=== PATIENT | female | born 1995 | race Caucasian/White ===

== ENCOUNTER 2016-12-14 12:55 | Emergency (ER) | payer OTHER ==
[~2016-12-14] VITALS: Ht 165.1 cm; Wt 68.2 kg
[2016-12-14 12:57] VITALS: BP 133/83; PULSE 81; RESP 16; O2SAT 98
--- NOTE | 2016-12-14 13:50 | ED.REPORT ---
HPI-General Illness Date of Service Dec 14, 2016 ED Provider: Jorge Luis Hatfield PA-C Family is otherwise healthy 21-year-old female presented with a chief complaint of possible allergy attack. Patient complains of eye pain with clear discharge , clear nasal discharge, postnasal drip, cough, sneezing. Denies ear symptoms, fever, abdominal pain, vomiting, contact lens use, chemical exposure, sick contacts. Nursing Notes Stated Complaint: POSSIBLE ALLERGY ATTACK Chief Complaint: FLU/Cold Symptoms Nursing Notes Reviewed: Yes Allergies: Coded Allergies: No Known Allergies (Unverified Allergy, Unknown, 12/14/16) Scheduled Fluticasone Propionate (Allergy Relief) 50 Mcg/Actuation [place].susp 2 SPRAY NOSTRIL BID Loratadine (Loratadine) 10 Mg Capsule 10 MG PO DAILY General Time Seen by MD: 13:32 Chief Complaint Other (allergy attack) Review of Systems Negative unless stated otherwise in history of present illness Physical Exam General: Well appearing, well developed, well nourished, no acute distress. Head: Atraumatic, normocephalic. No mastoid tenderness. Eyes: No scleral icterus or injection. Slight clear discharge. PERRL. EOMI. Vision grossly intact. Negative redness or swelling of the lids. Ears: Pinna and tragus nontender with manipulation. Right external auditory canal obstructed with cerumen. Left external auditory canal patent, atraumatic and without discharge. Tympanic membrane gomez, shiny and translucent without fluid, bulging, retraction or perforation. Hearing grossly intact. Nose: Symmetrical, nares patent without discharge. No frontal or maxillary sinus tenderness. Mouth/pharynx: normal dentition, mucus membranes moist. Tonsils 2+ and symmetrical, uvula midline. Pharynx injected, no cobblestoning or discharge. Voice clear. Neck: No tenderness or lymphadenopathy. Trachea midline. Respiratory: Mild clinically evident cough. No respiratory distress, no increased work of breathing. Speaks in complete sentences. Skin: Warm and dry. Neurological: Grossly nonfocal. Psychological: alert and oriented. Speech appropriate, linear and logical. Behavior appropriate. Vital Signs Vital Signs Date Time Temp Pulse Resp B/P Pulse Ox O2 Delivery O2 Flow Rate FiO2 12/14/16 14:11 78 16 109/67 98 Room Air 12/14/16 12:57 37.2 81 16 133/83 98 Room Air Normal Re-Eval/Medical Decision Med Decision/Clinical Course 21-year-old female with a history of seasonal allergies presents with chief complaint of a possible allergy attack. Complains of eye irritation, watery eyes, , runny nose, sore throat, cough, sneeze. Denies contact lens use, sick contacts, caustic exposures. Physical exam reveals slight clear discharge bilaterally, noninjected conjunctiva, pupils equal round and reactive to light, EOMI, negative redness and swelling of the eyelids. Clinically evident rhinorrhea, mild cough. Pharynx mildly injected. Vital signs are normal. I believe this is most likely a seasonal allergy, and less concerned about Infectious keratitis, bacterial or viral conjunctivitis, orbital or periorbital cellulitis, glaucoma, pneumonia. Advised loratidine, Flonase, [id number] antihistamine eyedrops. Patient has primary care follow-up arranged for Monday. Advised regarding primary care follow-up, provided emergency return precautions. Patient verbalized understanding of, and consent to, the plan. Discharge & Departure Primary Impression: Seasonal allergies Allergic rhinitis trigger: unspecified Qualified Code: J30.2 - Other seasonal allergic rhinitis Disposition: Home Discharge Condition All VS Reviewed: Yes Condition: Stable Additional Instructions: Evaluation in the emergency department for a possible allergy attack includes interview, physical examination both of which are reassuring this is unlikely to be caused by an immediately dangerous condition. I believe that your instinct is right, and this is most likely an allergic reaction. Treatment is largely symptomatic. I recommend Flonase spray to be used daily. This is a nasal steroid to reduce symptoms. I also recommend loratidine 10 mg daily, which is an antihistamine medication. You can use an [id number] antihistamine eyedrop to help with the eye symptoms. Follow-up with your primary care provider as planned on Monday. Return to emergency department for new or worsening symptoms including difficulty breathing, increasing eye pain. Referrals: Rich Ward DO EDSupervising Provider for APC: Antony John MD copies to: Rich Ward Seth PA-C Dec 14, 2016 13:50
[2016-12-14] MEDS ORDERED: LORA10CA9 PO (13:53)
[2016-12-14] MEDS ORDERED: FLUT15.812 NOSTRIL (13:53)
[2016-12-14 14:11] VITALS: BP 109/67; PULSE 78; RESP 16; O2SAT 98
== END 2016-12-14 14:11 | disposition home or self-care (01) ==
LOC: SED 12:55
DX: J30.2 Other seasonal allergic rhinitis (principal)